=== PATIENT | male | born 2000 | race Caucasian/White ===

== ENCOUNTER → 2022-01-01 | Outpatient (CLI) | payer OTHER | LOC: M PLAIMG 06:34 | PROVIDERS: ATTEND Physician Assistant | DX: M25.512 Pain in left shoulder (principal) ==

== ENCOUNTER 2024-06-04 16:55 | Emergency (ER) | payer OTHER ==
[~2024-06-04] VITALS: Ht 185.4 cm; Wt 80.4 kg
[2024-06-04 17:02] VITALS: TEMP 98.2
[2024-06-04 20:54] VITALS: BP 138/91; O2SAT 97
== END 2024-06-04 21:30 | disposition home or self-care (01) ==
LOC: M ED 16:55
DX: F41.9 Anxiety disorder, unspecified (principal); F10.10 Alcohol abuse, uncomplicated